=== PATIENT | female | born 1950 | race Caucasian/White ===

== ENCOUNTER 2018-04-05 10:52 | Emergency (ER) | payer MEDICARE, OTHER ==
[2018-04-05] MEDS ORDERED: Ondansetron HCl/PF 4 MG/2 ML Vial ONE (11:35)
[2018-04-05 11:36] LABS: #Basophils 0.1 thou/uL (0.0-0.2); #Lymphocytes 1.4 thou/uL (1.20-3.40); #Monocytes 0.4 thou/uL (0.11-0.59); #Neutrophils 6.7 thou/uL (1.40-6.50); %Basophils 0.7 % (0.0-1.0); %Eosinophils 0.1 % (0.0-10.0); %Lymphocytes 16.8 % (21.0-51.0); %Monocytes 4.8 % (0.0-10.0); %Neutrophils 77.7 % (42.0-75.0); Hemoglobin 13.4 g/dL (12.0-16.0); Mean Corpuscular HGB CONC 35.7 g/dL (32.0-36.0); Mean Corpuscular Hemoglobin 30.3 pg (27.0-31.0); Mean Platelet Volume 8.3 fL (7.4-10.4); Platelet Count 204 thou/uL (130-400); RBC Distribution Width 12.1 % (11.5-14.5); Red Blood Cell (RBC) Count 4.42 mill/uL (4.20-5.40); White Blood Cell (WBC) Count 8.6 thou/uL (4.8-10.8)
[2018-04-05 11:41] LABS: Bilirubin Negative (Negative); Blood, Urine Small (Negative); Clarity Clear (Clear); Glucose, Urine (Dipstick) Negative (Negative); Leukocyte Negative (Negative); Nitrite Negative (Negative); Protein, Urine (Dipstick) Trace mg/dL (Neg-Trace); Urobilinogen 0.2 mg/dL (0.2-1.0)
[2018-04-05] MEDS ORDERED: Ketorolac Tromethamine 30 MG/ML VIAL ONE (11:44)
[2018-04-05 11:52] LABS: ALT (SGPT) 20 U/L (8-55); AST (SGOT) 21 U/L (5-34); Albumin 4.4 g/dL (3.4-4.8); Alkaline Phosphatase 67 U/L (40-150); Anion Gap 17 mmol/L (10-20); BUN (Urea Nitrogen) 23 mg/dL (9.8-20.1); Bilirubin, Total 1.1 mg/dL (0.2-1.2); Calc. Creatinine Clearance 0 mL/min (70-130); Calcium 9.7 mg/dL (7.8-10.44); Carbon Dioxide 21 mmol/L (23-31); Chloride 107 mmol/L (98-107); Estimated GFR-MDRD 60; Globulin 3.1 g/dL (2.4-3.5); Glucose 111 mg/dL (80-115); Lipase 19 U/L (8-78); Potassium 4.1 mmol/L (3.5-5.1); Protein, Total 7.5 g/dL (6.0-8.3); Sodium 141 mmol/L (136-145)
[2018-04-05 11:56] LABS: Bacteria/HPF Rare-Few HPF (None Seen); Squamous Epithelial 0-3 HPF (0-3); WBC/HPF 0-3 HPF (0-3)
[2018-04-05] MEDS ORDERED: cefTRIAXone\\ROCEPHIN 2 GM VIAL ONE (12:59)
--- NOTE | 2018-04-05 14:02 | CT ---
CT OF THE ABDOMEN AND PELVIS WITHOUT IV CONTRAST: INDICATION: Right-sided flank pain. FINDINGS: There is moderate right-sided hydronephrosis and right hydroureter. There is a 3 mm calculus within the distal right ureter just proximal to the right UVJ. There is a tiny 1 mm nonobstructing calculus within the left mid kidney. There is calcified granuloma suspected within the unopacified liver. The unopacified pancreas, adrenal glands and spleen appear within normal limits. No drainable fluid collection is evident. There is a normal appendix in the right lower quadrant. The bladder is decompressed. The rectal and perirectal soft tissues are unremarkable. There is scattered diverticula involving the colon withou t evidence of active diverticulitis. There is scattered degenerative and osteoarthritic change. Lesion of low biologic activity involving the right proximal femur measuring 2.2 cm may reflect a small fibroosseous lesion. IMPRESSION: 1. A 3 mm distal right ureteral calculus causing moderate hydronephrosis. 2. Left nephrolithiasis. 3. Findings of prior granulomatous disease. 4. Colonic diverticulosis. POS: [facility]
== END 2018-04-05 13:55 | disposition home or self-care (01) ==
LOC: BURERS 10:52
DX: N13.2 Hydronephrosis with renal and ureteral calculous obstruction (principal); E78.5 Hyperlipidemia, unspecified; Z79.899 Other long term (current) drug therapy
CPT/HCPCS: 74176; 80053; 81003; 81015; 83690; 85025; 87086; 96361; 96374; 96375; J0696; J1885; J2405

== ENCOUNTER 2022-12-08 11:02 | Emergency (ER) | payer MEDICARE, OTHER | END 2022-12-08 12:19 | disposition home or self-care (01) | LOC: BURERS 11:02 | DX: J11.1 Influenza due to unidentified influenza virus with other respiratory manifestations (principal); E78.5 Hyperlipidemia, unspecified; Z20.822 Contact with and (suspected) exposure to COVID-19; Z87.891 Personal history of nicotine dependence; Z79.899 Other long term (current) drug therapy | CPT/HCPCS: 71045; 87804 ×2; U0003; U0005 ==